=== PATIENT | male | born 1980 | race Caucasian/White ===

== ENCOUNTER 2023-05-01 11:34 | Emergency (ER) | payer OTHER ==
[~2023-05-01] VITALS: Ht 180.3 cm; Wt 100.7 kg
[2023-05-01 12:10] VITALS: BP 138/91; PULSE 102; RESP 16; TEMP 99; O2SAT 98
== END 2023-05-01 16:13 | disposition left against medical advice (07) ==
LOC: ER 11:37
DX: H93.8X3 Other specified disorders of ear, bilateral (principal)
CPT/HCPCS: 99281

== ENCOUNTER 2025-05-06 02:53 | Emergency (ER) | payer MEDICAID, OTHER ==
[~2025-05-06] VITALS: Ht 180.3 cm; Wt 102.0 kg
--- NOTE | 2025-05-06 03:38 | Physician Documentation ---
History of Present Illness Chief Complaint: Abdominal Pain Stated Complaint: ABD PAIN Time Seen by MD: 03:32 Primary Medical Doctor: NONE Mode of Arrival: POV HPI This is a 44-year-old gentleman with a known history of gallstones, comes in for evaluation of right upper quadrant abdominal pain accompanied by nausea without vomiting that started at 5:00 p.m. without any obvious trigger, trauma provocation. The particular palliating or aggravating factors. He does not want to eat. The pain is moderate to severe in its intensity, waxing and waning. Did not attempt to treat it. Similar to prior gallstone biliary colic. Denies any other symptoms. Denies any concerns for tobacco, alcohol or illicit substances use. Medication Reconciliation Allergies: Coded Allergies: No Known Allergies (Unverified , 05/06/25) Review of Systems ROS 10 point review of systems was performed and unless noted above in HPI is negative for acute process/complaint. Physical Exam Vital Signs: Temperature: 98.0, Heart Rate: 80, Respiratory Rate: 20, BP: 134/74, Pulse Oximetry: 98, Weight: 102.000 Oxygen Flow Rate: 0 Physical Exam GENERAL: Awake, alert, oriented, GCS 15, no apparent distress, non-toxic appearing, answers questions, follows commands appropriately. Examined in bed 18. HEENT: Atraumatic, normocephalic, pupils equal, extraocular muscles intact, sclerae anicteric, mucus membranes moist, oropharynx is clear, no stridor. NECK: supple, full active range of motion, trachea midline, no thyromegaly, no lymphadenopathy, no JVD. CARDIOVASCULAR: regular rate/rhythm, no murmurs/gallops/rubs, Pulses are 2+ in all extremities and symmetric. Capillary refill less than 2 seconds. PULMONARY: Nonlabored, good air movement ,no respiratory distress, speaking in full sentences, clear to auscultation bilaterally, no wheezing, no ronchi, no rales, no accessory muscle use. GASTROINTESTINAL: Soft, right upper quadrant abdominal tenderness to palpation reproducing chief complaint, positive Boyle's, non-distended, normal active bowel sounds, no organomegaly, no pulsatile masses, no CVA tenderness. NEUROLOGIC: Lucid with normal mental status. Normal facial symmetry. Moves all extremities symmetrically and with purpose. No truncal ataxia. Speech is fluid without evidence of dysarthria or aphasia, no focal deficits appreciated. MUSCULOSKELETAL: There is full range of motion of all extremities. There is no joint pain or joint swelling or joint erythema. There is no muscle pain or tenderness or swelling. EXTREMITIES: warm, well-perfused, no cyanosis, no clubbing, no edema, no acute deformities. Skin: warm, dry, no rashes or lesions, no jaundice, no petechiae orpurpura. No ecchymosis. PSYCHIATRIC: Normal affect, normal insight, normal concentration. Focused exam: [] Progress Results/Orders Results/Orders Vital Signs 05/06/25 03:07 Temp 98.0 Pulse 80 Resp 20 B/P (MAP) 134/74 Pulse Ox 98 O2 Flow Rate 0 Medical Decision Making Findings Facility Status: ED Holds, [facility] process The plan was discussed with the patient, who demonstrates clear understanding of the plan and is in agreement with the plan unless otherwise noted in the chart. All questions have been answered, all concerns were addressed unless otherwise documented. I was available throughout their ED stay for frequent reassessment and questions. Differential Diagnoses (considered and possible or likely): [Differential diagnosis considered includes acute appendicitis, acute cholecystitis, pancreatitis, gastritis, PUD, diverticulitis, mesenteric ischemia, abdominal aortic aneurysm, bowel obstruction, enteritis, colitis, fecal impaction, volvulus, IBS, inflammatory bowel disease, specific food intolerance, peritonitis, perforated viscous, malignancy, UTI, abscess, and abdominal pain NOS. History, physical exam, and workup exclude many of the more serious causes listed above. ] ??Differential Diagnoses (considered and unlikely, not requiring evaluation currently): [See above] MDM Data Please see [facility] for the following: Independent Historians and external Records Review. Historian: [Patient] Independent Historians: ?[Record review] Medication Management: [Reviewed medication list] Social History and determinants: [Reviewed] Please see the body of the note for the following: Any independent interpretations of ECG, imaging studies. All vitals signs/haemodynamics, ordered tests were independently reviewed and interpreted by myself. Nursing triage complaint and vitals reviewed, additional nursing notes were reviewed as available and I agree unless otherwise noted or documented in contradiction in the chart Vital Signs: Independently reviewed Labs: Independently interpreted Imaging: Independently interpreted Old Medical Records: Independently reviewed, see [facility] for relevant summary and information Pulse Oximetry: [99%] interpreted as [normal on room air] by me Additionally notably showing: [] Tests considered but not ordered include: [] Social Determinants of Health Impact: Patient was evaluated in [facility], or [facility] [place] to healthcare due to below par ratio of patient to medical providers. [] Comorbid Conditions Impacting Present Evaluation and Care/Treatment: [] Management Discussions with other Healthcare Providers: [] Treatment and Disposition Medication Management (Given or considered): [Antiemetics, pain management]. See EMR for details Consideration for Hospitalization/Escalation/Deescalation of Care: Admission for observation has been considered, [however the patient is able to tolerate p.o., their symptoms are controlled, they are able to rely on oral medications, and their chief complaint/diagnosis can be managed on outpatient basis.] ?ED Course:?[] ?Shared decision making:?[] Code status:?FULL Please see the full Electronic Medical Record for full details of nursing documentation, medications list, other records of complete past medical history and conditions, vital signs, laboratory studies, and any radiologic study interpretations by radiologists. Portions of this note were completed using [email or web address] dictation software and as a result there may exist minor errors in spelling. I have reviewed elements of past family and social history and agree as included in note. Addendum I received sign-out on this patient at shift change. Briefly: The patient has history of gallstones, presented with right upper quadrant pain. Pending labs, ultrasound, CT scan. CT abdomen and pelvis: I personally interpreted the CT scan, and this shows no bowel obstruction or obvious bowel inflammation Right upper quadrant ultrasound: I personally reviewed the ultrasound, which shows multiple stones in the gallbladder, but normal gallbladder wall without thickening 8:15 a.m.: Re-evaluation: The patient is resting comfortably in bed. Denies any significant pain at this time. Repeat abdominal exam is benign. I explained the results of his testing and he would like to go home. Medical decision-making: Overall, this appears consistent with biliary colic which has resolved. The patient is given information and return precautions as well as information to follow up with a surgeon for further evaluation. Disposition: Discharged home Warren Hdz MD Departure Time of Disposition: 08:18 Disposition: 01 HOME / SELF CARE / HOMELESS Impression: Primary Impression: Right upper quadrant abdominal pain Additional Impressions: History of gallstones Biliary colic Condition: Improved Discharge Instructions: Cholelithiasis Referrals: NO PRIMARY CARE PROVIDER (PCP) BAUDILIO MOSHER MD Education Educated: Patient Educated regarding: diagnosis, treatment, need for follow up Signature Scribe Signature: No scribe Attestation: Date: May 06, 2025 Time: 03:37 This note accurately reflects clinical decisions, work performed by myself, DO DAFNE Burk NICHOLAS M DO May 06, 2025 03:37 WARREN HDZ MD May 06, 2025 08:18
[2025-05-06] MEDS: ondansetron/PF 4mg/2ml inj IV ONE (04:57)
[2025-05-06] MEDS: morphine 4 MG/ML inj SYRINge IV ONE (04:58)
[2025-05-06 05:16] LABS: MEAN PLATELET VOLUME 8.2 FL (7.4-10.4); RED CELL DISTRIBUTION WIDTH 14.5 % (11.5-14.5)
[2025-05-06 05:21] VITALS: TEMP 98
[2025-05-06 05:35] LABS: CREATININE 1.00 MG/DL (0.60-1.10); TOTAL CARBON DIOXIDE 22.9 MMOL/L (24-32); eCRCL 98 ML/MIN; eGFR 80 ML/MIN
[2025-05-06] MEDS ORDERED: iohexol 300mg/ml 100ml inj. ONE (07:03)
--- NOTE | 2025-05-06 07:59 | RADIOLOGY REPORT ---
INDICATION: ruq pain, hx of gallstones TECHNIQUE: Multiple real-time sonographic images were obtained of the right upper quadrant. COMPARISON: None FINDINGS: The liver demonstrates increased echotexture without focal mass lesions. The liver measures 16 cm. There is no intrahepatic or extrahepatic ductal dilatation. The common duct measures 0.3 cm. Cholelithiasis. The gallbladder wall measures 0.2 cm and is within normal limits. The right kidney measures 11.5 cm. The right kidney is normal in contour, size, and shape. The echogenicity is normal. There is no hydronephrosis. The pancreas is not well visualized due to overlying bowel gas. IMPRESSION: Cholelithiasis. Hepatic steatosis.
--- NOTE | 2025-05-06 08:05 | RADIOLOGY REPORT ---
CLINICAL INFORMATION: Right-sided abdominal pain. TECHNIQUE: Axial CT images of the abdomen and pelvis were obtained after the uneventful administration of 100 mL Omnipaque 300 IV contrast. Coronal and sagittal reformatted images were obtained, reviewed, and stored. All CT scans at this medical facility are performed using dose modulation techniques as appropriate to a performed exam including the following: Automated exposure control was utilized; adjustment of the MA and/or KV according to patient size; and use of iterative reconstruction technique. CTDIvol = 29.33 mGy DLP = 1617.32 mGy-cm COMPARISON: None FINDINGS: Lung bases: Dependent atelectasis. Liver: Hepatic steatosis. Biliary: No calcified gallstones or biliary ductal dilatation. Spleen: Unremarkable. Pancreas: Unremarkable. No inflammatory changes, ductal dilatation, or mass identified. Adrenal glands: Unremarkable. No mass. Kidneys: No hydronephrosis or mass. Aorta/Vascular: No aneurysm or significant calcification. Retroperitoneum: No mass or lymphadenopathy. Bowel/mesentery: Nonspecific nondilated fluid-filled small bowel loops with areas of mild small bowel wall thickening. No small bowel obstruction. Appendix is visualized and appears unremarkable. Scattered small colonic diverticula without adjacent inflammatory changes to suggest diverticulitis. Pelvic organs: Grossly unremarkable. Bladder: Unremarkable. No mass. Abdominal wall: No mass or hernia. Bones: No acute fracture or focal intraosseous lesion. IMPRESSION: 1. Nonspecific nondilated fluid-filled small bowel loops. Findings may be seen with ileus or enteritis in the appropriate clinical setting. No small bowel obstruction. 2. Scattered colonic diverticula without adjacent inflammatory changes to suggest diverticulitis. 3. Hepatic steatosis. 4. Additional findings as described above.
[2025-05-06 08:39] VITALS: BP 115/81; PULSE 69; RESP 15; O2SAT 96
== END 2025-05-06 08:42 | disposition home or self-care (01) ==
LOC: ER 02:54
DX: K80.70 Calculus of gallbladder and bile duct without cholecystitis without obstruction (principal)
CPT/HCPCS: 36415; 74177; 76700; 80053; 83690; 83735; 84484; 85025; 96374; 96375; 99285; J2270; J2405; Q9967

== ENCOUNTER 2025-08-14 02:05 | Inpatient (IN) | payer MEDICAID ==
[2025-08-14] VITALS (23 sets, daily range): BP systolic 105–170; BP diastolic 63–110; PULSE 60–104; RESP 2–18; TEMP 97.7–98.2; O2SAT 49–97
[~2025-08-14] VITALS: Ht 182.9 cm; Wt 103.2 kg
[2025-08-14 02:37] LABS: MEAN PLATELET VOLUME 8.5 FL (7.4-10.4); RED CELL DISTRIBUTION WIDTH 13.8 % (11.5-14.5)
[2025-08-14 02:42] LABS: CREATININE 1.16 MG/DL (0.60-1.10); TOTAL CARBON DIOXIDE 26.4 MMOL/L (24-32); eCRCL 87 ML/MIN; eGFR 68 ML/MIN
[2025-08-14] MEDS: morphine 4 MG/ML inj SYRINge IV ONE (03:35)
--- NOTE | 2025-08-14 03:38 | Physician Documentation ---
History of Present Illness ~ Chief Complaint: Abdominal Pain Stated Complaint: ABD PAIN A ALS Time Seen by MD: 03:31 Primary Medical Doctor: NONE HPI Patient presents to the emergency room with acute onset right upper quadrant abdominal pain that has started at 9:30 p.m. patient has history of gallstones. He states he had to microwave burritos for dinner. He states he has been working over the past two months since he was seen for similar symptoms with his primary care for referral to surgeon however that has not heard from any referrals despite him calling in checking. Medication Reconciliation Allergies: Coded Allergies: No Known Allergies (Unverified , 05/06/25) Scheduled Quetiapine Fumarate (Quetiapine Fumarate), 1 TAB PO HS, (Reported) Review of Systems ROS All review of systems negative except as per HPI Physical Exam Vital Signs: Temperature: 98.6, Source: Oral, Heart Rate: 61, Respiratory Rate: 12, BP: 128/83, Pulse Oximetry: 95, Weight: 103.180 Oxygen Flow Rate: 0 Physical Exam General: Patient is awake, alert, oriented x4 in no acute distress Head: Normocephalic and atraumatic. Eyes: Conjunctival normal. EOMI. PERRL. ENT: Mucous membranes moist. Neck: Supple, trachea is midline. Chest: Clear to auscultation bilaterally without rales, rhonchi, or wheezes. There is no accessory muscle use or retractions. Cardiac: RRR without murmurs, gallops, or rubs. Abd: Soft, nondistended, right upper quadrant tenderness to palpation Progress Progress Note 0919: The hospitalist has been paged at this time. 0929: The hospitalist, Dr. Bailon called and was informed on the patient at this time, kindly agreeing to their admission. Results/Orders Results/Orders Orders - JORGE L LEZAMA MD Saline Lock (08/14/25 02:07) Straight Cath For Urine Sample (08/14/25 02:07) Ultrasound Of Abdomen (08/14/25 05:33) Completed Orders - JORGE L LEZAMA MD Urinalysis, Cult If Indicated (08/14/25 02:07) Cbc/Diff (08/14/25 02:07) Lipase (08/14/25 02:07) CMP (08/14/25 02:07) Ketorolac Trometh 15mg/Ml Vial (Toradol (08/14/25 03:35) Ondansetron Inj. (Zofran 4mg/2ml Vial) (08/14/25 03:35) Morphine 4mg/Ml Inj. (Morphine Inj.) (08/14/25 03:35) Normal Saline 1000ml (0.9% Sodium Chlori (08/14/25 03:35) Ethanol (08/14/25 02:16) Fentanyl/Pf (Fentanyl 0.05 Mg/Ml Syringe (08/14/25 05:35) Acetaminophen 1,000mg/100ml Iv (Ofirmev (08/14/25 05:35) Ultrasound Of Abdomen (08/14/25 05:33) Vital Signs 08/14/25 08/14/25 08/14/25 08/14/25 02:16 03:34 05:37 06:25 Temp 98.6 98.6 98.6 Pulse 74 61 63 Resp 16 12 B/P (MAP) 124/71 128/83 (98) 113/79 (90) Pulse Ox 97 95 93 O2 Flow Rate 0 0 0 08/14/25 08/14/25 07:44 08:35 Temp 98.6 Pulse 63 68 Resp 16 15 B/P (MAP) 112/63 (79) 125/80 (95) Pulse Ox 95 97 O2 Flow Rate 0 Laboratory Tests Test 08/14/25 02:16 08/14/25 05:30 White Blood Count 8.0 Red Blood Count 5.10 Hemoglobin 14.8 Hematocrit 43.7 Mean Corpuscular Volume 85.7 Mean Corpuscular Hemoglobin 28.9 Mean Corpuscular Hemoglobin Concent 33.8 Red Cell Distribution Width 13.8 Platelet Count 251 Mean Platelet Volume 8.5 Neutrophils (%) (Auto) 48.3 Lymphocytes (%) (Auto) 40.7 Monocytes (%) (Auto) 5.2 Eosinophils (%) (Auto) 5.1 Basophils (%) (Auto) 0.7 Neutrophils # (Auto) 3.8 Lymphocytes # (Auto) 3.2 Monocytes # (Auto) 0.4 Eosinophils # (Auto) 0.4 Basophils # (Auto) 0.1 CBC Comment Sodium Level 144 Potassium Level 3.6 Chloride Level 108 H Carbon Dioxide Level 26.4 Anion Gap 10 Blood Urea Nitrogen 12 Creatinine 1.16 H Estimated GFR/1.73 m2 68 BUN/Creatinine Ratio 10.3 Glucose Level 124 H Calcium Level 8.6 Total Bilirubin 0.3 Aspartate Amino Transf (AST/SGOT) 21 Alanine Aminotransferase (ALT/SGPT) 36 Alkaline Phosphatase 100 Total Protein 6.7 Albumin 3.4 Globulin 3.3 Albumin/Globulin Ratio 1.0 L Lipase 50 Chemistry Comments Ethyl Alcohol Level < 10 Urine Specimen Description Cln catch midstream Urine Color Yellow Urine Clarity Clear Urine pH 5.5 Urine Specific [place] >=1.030 Urine Protein Negative Urine Glucose (UA) Negative Urine Ketones Negative Urine Occult Blood Negative Urine Nitrite Negative Urine Bilirubin Negative Urine Urobilinogen 0.2 Urine Leukocyte Esterase Negative Urine Culture Indicated Not ind Volume Urine Centrifuged 10 ml Urine Comment EKG/XRAY/CT/US/VASC/MRI EKG : Additional Comment 0909: [facility] interpreted the EKG to show a normal sinus rhythm at a rate of 66 beats per minute, normal axis, nonspecific ST wave depression or elevation. Ultrasound : Impression CLINICAL INFORMATION: Abdominal pain. TECHNIQUE: Grayscale sonographic imaging of the right upper quadrant of the abdomen was performed, assisted by color Doppler techniques. COMPARISON: CT CT ABDOMEN PELVIS W/ IV CONTRAST on DOS: 05/06/25 FINDINGS: The gallbladder wall measures 2.8 mm in thickness, within normal limits. The gallbladder is filled with shadowing gallstones. Positive reported sonographic Boyle's sign. The common bile duct measures 3.7 mm in diameter, within normal limits. Increased echogenicity of the liver consistent with fatty infiltration. Liver measures up to 16.6 cm in craniocaudal dimension, at the upper limits of normal. The pancreas is obscured by bowel gas. The right kidney measures 8.9 cm. There is no hydronephrosis. Right renal cortical echogenicity and cortical thickness are within normal limits. IMPRESSION: 1. Cholelithiasis with positive reported sonographic boyle's sign. Acute cholecystitis not excluded. Gallbladder wall thickness is within the range of normal. Correlate with clinical findings. 2. Hepatic steatosis. 3. Additional findings as detailed above. Electronically Signed by:VICTOR MANUEL VALLES DO Date & Time: 08/14/25 7792 Medical Decision Making Additional information obtaine: old records Findings Patient returns to the emergency room with continued epigastric pain. Ultrasounds shows possible cholecystitis. We will admit for further definitive management Diff Dx GI Bleed:Consideration: Include: AE fistula, Angiodysplasia, Bleeding diathesis, Blood loss anemia, Carcinoma, Diverticulosis, Diverticulitis, Esophageal varicies, Esophagitis, Gastritis, Gastroenteritis, Inflammatory BD, Lisa-Carpio syndrome, Meckel's diverticulum, PUD, Other Diff Dx Pain:Considerations: Include: AAA, Angina/KS, Aortic dissection, Appendicitis, Bowel obstruction, Cholangitis, Cholecystitis, Cholelithasis, Constipation, Diverticular disease, Esophageal rupture, Esophagitis, Gastritis, Gastroenteritis, GI hemorrhage, Hepatitis, Hernia, Inflammatory BD, Ischemic bowel, Mass, Pancreatitis, Porphyria, PUD, Testicular torsion, Trauma, intraabdominal, Urinary obstruction, Urinary tract infection, Urolithiasis, Other Diff Dx N/V/D:Considerations: Include: Appendicitis, Bowel obstruction, Dehydration, DKA, Diarrhea - bacterial, Diarrhea - parasitic, Diarrhea - viral, Diverticulitis, Diverticulosis, Drug toxicity, Electrolyte imbalance, Food poisoning, Gastroenteritis, GE reflux, GI bleed, Hepatitis, Hernia, Hypovolemia, Hypotension, Inflammatory BD, Impaction, Malnutrition, Pancreatitis, PUD, Renal failure, Urinary obstruction, UTI, Urolithiasis, Other Diff Dx Rectal:Considerations: Include: Fissure, Fistula, Foreign body, Impaction, Perirectal abscess, Prostatitis, Rectal prolapse, Subcutaneous abscess, Thrombosed hemorrhoid, Ulcer, UTI, Other Departure Time of Disposition: 09:30 Disposition: 09 ADMITTED INPATIENT Admitted to Inpatient Unit: yes, to hospitalist Impression: Primary Impression: Cholecystitis Condition: Guarded Referrals: NO PRIMARY CARE PROVIDER (PCP) Signature Scribe Signature: Scribed for [facility],Keegan Sarkar MD by Ana Paula Brady . 08/14/25 09:18 (Departure and progress) Attestation: The note accurately reflects work and decisions made by me.Jorge L Lezama MD 08/14/25 21:29 JORGE L LEZAMA MD Aug 14, 2025 03:38 ANA PAULA ATKINSON Aug 14, 2025 09:19
[2025-08-14 03:58] LABS: ETHANOL < 10 MG/DL (<10)
[2025-08-14] MEDS: ondansetron/PF 4mg/2ml inj IV ONE (04:22)
[2025-08-14] MEDS: ketorolac trometh 15mg/ml vial 15 MG/ML ML IV ONE (04:22)
[2025-08-14] MEDS: normal saline 1000ml 1,000 ML IV ONE (05:31)
[2025-08-14] MEDS: acetaminophen 1,000mg/100ml IV 100 ML IV ONE ×2 (05:43→15:16)
[2025-08-14] MEDS: fentaNYL/PF 50MCG/1 ML 2ML syringe IV ONE (05:59)
[2025-08-14 06:03] LABS: LEUKOCYTE ESTERASE ,URINE NEGATIVE (Neg); NITRITES, URINE NEGATIVE (Neg); OCCULT BLOOD,URINE NEGATIVE (Neg)
[2025-08-14 06:05] LABS: UA COLLECTION TYPE CLN CATCH MIDSTREAM
--- NOTE | 2025-08-14 08:39 | RADIOLOGY REPORT ---
CLINICAL INFORMATION: Abdominal pain. TECHNIQUE: Grayscale sonographic imaging of the right upper quadrant of the abdomen was performed, assisted by color Doppler techniques. COMPARISON: CT CT ABDOMEN PELVIS W/ IV CONTRAST on DOS: 05/06/25 FINDINGS: The gallbladder wall measures 2.8 mm in thickness, within normal limits. The gallbladder is filled with shadowing gallstones. Positive reported sonographic Boyle's sign. The common bile duct measures 3.7 mm in diameter, within normal limits. Increased echogenicity of the liver consistent with fatty infiltration. Liver measures up to 16.6 cm in craniocaudal dimension, at the upper limits of normal. The pancreas is obscured by bowel gas. The right kidney measures 8.9 cm. There is no hydronephrosis. Right renal cortical echogenicity and cortical thickness are within normal limits. IMPRESSION: 1. Cholelithiasis with positive reported sonographic boyle's sign. Acute cholecystitis not excluded. Gallbladder wall thickness is within the range of normal. Correlate with clinical findings. 2. Hepatic steatosis. 3. Additional findings as detailed above.
[2025-08-14] MEDS ORDERED: magnesium hydroxide 30ml (MOM) UD suspension PO PRN (09:30)
[2025-08-14] MEDS ORDERED: potassium Cl 20 mEq SR tablet PO PRN ×2 (09:30)
[2025-08-14] MEDS ORDERED: HYDROmorphone/PF 0.2 MG/ML SYRINGE IV PRN ×3 (09:30→11:50)
[2025-08-14] MEDS ORDERED: magnesium sulf-water 2g/50mL 50 ML IV PRN (09:30)
[2025-08-14] MEDS ORDERED: magnesium sulf-water 4G/100mL 100 ML IV PRN (09:30)
[2025-08-14] MEDS ORDERED: magnesium Cl slow-release 64mg tablet PO PRN (09:30)
[2025-08-14] MEDS ORDERED: potassium Cl 40MEQ/1/2NS 520ml 520 ML IV PRN (09:30)
[2025-08-14] MEDS ORDERED: mag hydrox/Alum hydrox/simeth 30ml oral suspension PO PRN (09:30)
[2025-08-14] MEDS ORDERED: HYDROmorphone inj. 0.5 MG/0.5 ML DISP.SYRIN IV PRN (09:34)
--- NOTE | 2025-08-14 09:36 | ELECTROCARDIOGRAPH REPORT ---
[facility] Test Date: 2025-08-14 Test Time: 09:34:56 Pat Name: WONG ESCALANTE Department: [facility] Patient ID: [id number] Room: [place] [address] Gender: M [employer]: : 1980 Requested By: JUDY MARTE Order Number: [id number] Reading MD: Dr. David Hayes Measurements Intervals [place] Rate: 66 P: 67 IA: 207 QRS: 79 QRSD: 106 T: 3 QT: 401 QTc: 421 Interpretive Statements Sinus rhythm Borderline prolonged IA interval ST elev, probable normal early repol pattern Electronically Signed On 08-15-2025 21:13:[address] David Hayes Please click the below link to view image of tracing.
[2025-08-14] MEDS: CefTRIAXone 2gm/D5W 50ml BAG 50 ML IV ONE (10:04)
[2025-08-14] MEDS: normal saline 1000ml 1,000 ML IV SCH (10:15)
--- NOTE | 2025-08-14 10:42 | HISTORY AND PHYSICAL ---
History & Physical Providers to CC ~ History of Present Illness Reason for Admit\Complaint: Acute cholecystitis\biliary colic History of Present Illness This is a 44 year old male who has a 10 year history of intermittent episodes of right upper quadrant abdominal pain related to gallstones. Last evening he had he did up to frozen breathe dose in the microwave and after eating he developed significant right upper quadrant abdominal pain that was persistent to the point that he came to the ED. The patient has been wanting his gallbladder out for several years however to no avail. Dr. Guzman spoke with Dr. Ron surgeon who is taking the patient to the OR. The patient is NPO Allergies: Coded Allergies: No Known Allergies (Unverified , 05/06/25) Past Medical History Past Medical History Gallstones with biliary colic times 10 years Past Surgical History Surgical History Comment No prior surgeries Family History Family History: Patient reports no known family medical history. Past Social History Social History Comment Smokes a pack of cigarettes a day, rare alcohol intake, denies any illicit drug use. Full code status. ROS ROS Except for positives in the HPI the rest of the 14 point review systems is negative. Exam Vitals: Vital Signs Date Time Temp Pulse Resp B/P (MAP) Pulse Ox O2 Delivery O2 Flow Rate FiO2 08/14/25 08:35 98.6 68 15 125/80 (95) 97 0 General: Gen. No acute distress alert and oriented 4 Lungs clear to ascultation bilaterally, no wheezes rales or rhonchi appreciated Heart normal sinus rhythm no murmurs rubs or clicks noted Abdomen soft nontender bowel sounds are normoactive Lower extremities no clubbing cyanosis, nor edema appreciated bilaterally Diagnostic Data Last Recorded Lab Results: 08/14/25 0216 08/14/25 0216 Counseling Services Smoking & Tobacco Cessation: > 10 Minutes Advance Care Planning Advanced Care plannin - 30 Minutes Problems: (1) Cholecystitis Status: Acute Additional Plan # acute cholecystitis # 10 year history of biliary colic secondary to gallstones The patient is NPO Received IV Rocephin in the ED Dr Ron surgeon is taking the patient to the OR this afternoon. IV Dilaudid for pain management # mildly reduced kidney function KUMAR versus CKD Daily metabolic panels are ordered # Tobacco use disorder-I spent 12 minutes discussing smoking cessation with the patient including the risk of continuing smoke: Lung cancer, stroke, heart attack, poor wound healing, Causes erectile dysfunction in men. The expense of smoking cigarettes and how cigarettes have been scientifically engineered to be as addictive as humanly possible. The patient has accepted a 21 mg nicotine patch. # DVT prophylaxis SCDs I spent a total of 16 minutes on reviewing various resuscitative measures/ ACP with the patient at the time of admission. The patient has decided on full code status Date of Service: Aug 14, 2025 Billing Provider: LIAT TORRES DO Common Visit Codes: 38004-DUASOKB INP/OBS CARE (HIGH) Secondary Visit Codes: 72862-AVWPD CHNG SMOKING >10MIN, [id number] CARE PLAN 30 MINUTES LAIT TORRES DO Aug 14, 2025 10:42
[2025-08-14] MEDS: nicotine 21mg patch - 24 hr TD ONE ×2 (10:48→17:49)
[2025-08-14] MEDS ORDERED: QUET100T34 PO (11:19)
[2025-08-14] MEDS ORDERED: ondansetron/PF 4mg/2ml inj IV PRN ×2 (11:50→14:50)
[2025-08-14] MEDS: ringers solution, lacted 1,000 ML IV SCH (11:50)
[2025-08-14] MEDS ORDERED: hydrALAZINE 20mg/ml inj. IV PRN (11:50)
[2025-08-14] MEDS ORDERED: dexamethasone sod phosphate 4mg/ml inj. ONE (13:15)
--- NOTE | 2025-08-14 13:22 | PROGRESS NOTE ---
Progress Note ID Providers to CC ~ Progress Note Progress Note: pt seen and examined-needs tyler dupont-discussed procedure including risks/benefits/alternatives BAUDILIO MOSHER MD Aug 14, 2025 13:22
[2025-08-14] MEDS ORDERED: ondansetron/PF 4mg/2ml inj ONE (13:42)
[2025-08-14] MEDS ORDERED: propofol inj 20 ML IV ONE (13:42)
[2025-08-14] MEDS ORDERED: glycopyrrolate 0.2mg/ml inj ONE (13:42)
[2025-08-14] MEDS ORDERED: rocuronium 10mg/ml inj IV ONE (13:42)
[2025-08-14] MEDS ORDERED: LIDOcaine 2% (20mg/ml) 5ml vial ONE (13:42)
[2025-08-14] MEDS ORDERED: acetaminophen 1,000mg/100ml IV 100 ML IV ONE (13:43)
[2025-08-14] MEDS ORDERED: fentaNYL/PF 50MCG/1 ML 2ML syringe ONE (13:43)
[2025-08-14] MEDS: BUPIVAcaine/PF 2.5 mg/ml (0.25%) 30ml vial IJ ONE (13:55)
--- NOTE | 2025-08-14 14:45 | OPERATIVE REPORT ---
Operative Report Providers to CC ~ Date of Procedure: Aug 14, 2025 Pre-Operative Diagnosis: cholelithiasis Post-Operative Diagnosis SAME as PRE-Op Procedure Performed tyler dupont Surgeon: monty Drill Bit Sharpener none Anesthesiologist: Won Jacobsen Type of Anesthesia: General Findings: distended gb Estimated Blood Loss: min Specimen Removed: BAUDILIO Moreno MD Aug 14, 2025 14:45
[2025-08-14] MEDS: fentaNYL/PF 50MCG/1 ML 2ML syringe IV PRN ×2 (14:49→14:52)
[2025-08-14] MEDS ORDERED: PCA WASTE DOCUMENTATION 1 MG ML MC SCH (14:50)
[2025-08-14] MEDS: labetalol 20mg/4ml (5mg/ml) syringe IV PRN (15:01)
[2025-08-14] MEDS: ketorolac trometh 30MG/ML vial 30 MG/ML VIAL IV ONE (15:25)
[2025-08-14] MEDS: HYDROmorphone inj. 0.5 MG/0.5 ML DISP.SYRIN IV PRN ×3 (15:41→22:19)
[2025-08-14] MEDS: ondansetron/PF 4mg/2ml inj IV PRN (17:43)
[2025-08-14] MEDS: K and/or MAG REPLACEMENT MC SCH (20:00)
[2025-08-14] MEDS: HYDROcodone/acetaminophen 10/325mg tab PO PRN (20:08)
[2025-08-14] MEDS: docusate sod 100mg capsule PO SCH (20:08)
--- NOTE | 2025-08-15 01:31 | OPERATIVE REPORT ---
DATE OF SURGERY: 08/14/2025 DICTATING PHYSICIAN: Chapo Ron MD PREOPERATIVE DIAGNOSIS: Cholelithiasis. POSTOPERATIVE DIAGNOSIS: Cholelithiasis. PROCEDURE PERFORMED: Robotic cholecystectomy. SURGEON: Chapo Ron MD. ROD AND TUBE STRAIGHTENER: None. ANESTHESIA: General/Dr. Jacobsen. DRAINS: None. INDICATIONS FOR OPERATION: A 44-year-old male with history of abdominal discomfort and is taken to surgery for robotic cholecystectomy. INTRAOPERATIVE FINDINGS: Distended gallbladder with stones. DESCRIPTION OF PROCEDURE: The patient was placed supine on the operating table. After induction of general anesthesia and placement of endotracheal tube, the abdomen was prepped and draped. A subumbilical incision was then made and Maddi port placed using open technique and pneumoperitoneum was begun by insufflation of CO2. Additional ports were placed in the left lower quadrant and two in the right. Robot was then brought to the field. Camera port docked. Camera placed, camera targeted. Additional ports were then docked and instruments placed. Abdomen was then explored. Gallbladder fundus was grasped and retracted cephalad. Cystic duct identified, isolated, ligated, clipped and divided as was the cystic artery. The gallbladder was mobilized off the gallbladder fossa. When hemostasis was noted to be adequate, robotic instruments were removed. Gallbladder was placed in a lap bag using the laparoscope. Abdomen was then copiously irrigated with large amount of antibiotic-containing solution. Ports were then removed as well as gallbladder. Under laparoscopic vision with no evidence of active bleeding, final port and camera withdrawn. Pneumoperitoneum was then evacuated. Wounds were closed in layers. Skin was closed with clips. Dressing was applied. The patient was transferred to recovery room in stable condition. Chapo Ron MD TID: [id number] RECEIPT: [id number] /
[2025-08-15 02:00] VITALS: BP 136/72; PULSE 91; RESP 18; TEMP 99.1; O2SAT 93
[2025-08-15 03:50] VITALS: O2SAT 96
[2025-08-15 04:56] LABS: MEAN PLATELET VOLUME 8.2 FL (7.4-10.4); RED CELL DISTRIBUTION WIDTH 13.9 % (11.5-14.5)
[2025-08-15 05:14] LABS: CREATININE 1.35 MG/DL (0.60-1.10); TOTAL CARBON DIOXIDE 25.6 MMOL/L (24-32); eCRCL 75 ML/MIN; eGFR 57 ML/MIN
[2025-08-15 07:24] VITALS: BP 129/66; PULSE 87; RESP 13; TEMP 99.4; O2SAT 96
[2025-08-15 07:36] VITALS: RESP 16; O2SAT 96
[2025-08-15] MEDS: nicotine 21mg patch - 24 hr TD SCH (07:40)
[2025-08-15] MEDS ORDERED: nicotine 21mg patch - 24 hr TD ONE (08:00)
[2025-08-15 10:00] VITALS: BP 144/84; PULSE 87; RESP 16; TEMP 99.3; O2SAT 95
[2025-08-15] MEDS ORDERED: HYDR-3972 PO (11:34)
[2025-08-15] MEDS ORDERED: SACC250C PO (11:34)
[2025-08-15] MEDS ORDERED: CEFD300C3 PO (11:34)
[2025-08-15] MEDS ORDERED: NICO-687 TD (11:45)
--- NOTE | 2025-08-15 19:27 | DISCHARGE SUMMARY ---
Discharge Summary Providers to CC ~ Discharge Summary Admission Diagnosis: cholelithiasis Hospital Course DATE OF ADMISSION: 08/14/2025 DATE OF DISCHARGE: 08/15/2025 Discharge Diagnosis\Comment: Cholecystitis Likely CKD Tobacco use disorder Operations\Procedures: Laparoscopic cholecystectomy Consultants: Dr Chapo Ron surgeon Complications: None Condition on DC: Stable New Medications: Cefdinir (Cefdinir) 300 Mg Capsule 1 CAP PO Q12H for 5 Days, #10 CAP 0 Refills Saccharomyces Boulardii (Florastor) 250 Mg Capsule 1 CAP PO Q12H for loose stool for 10 Days, #20 CAP 0 Refills Hydrocodone Bit/Acetaminophen (Hydrocodon-Acetaminophn 10-325 tablet) 10mg- 325mg Tablet 1 TAB PO Q4H PRN for SEVERE PAIN 7-10, #15 TAB Nicotine 21 MG Patch* (Habitrol 21 MG Patch*) 1 Each Patch.td24 1 PATCH TD DAILY, #28 PATCH Do not smoke while on a nicotine patch this could markedly raise your blood pressure and you could have a stroke. Continued Medications: Quetiapine Fumarate (Quetiapine Fumarate) 100 Mg Tablet 1 TAB PO HS Discharge Summary: I admitted the patient with the following HPI:This is a 44 year old male who has a 10 year history of intermittent episodes of right upper quadrant abdominal pain related to gallstones. Last evening he had he did up to frozen breathe dose in the microwave and after eating he developed significant right upper yuliet drant abdominal pain that was persistent to the point that he came to the ED. The patient has been wanting his gallbladder out for several years however to no avail. Dr. Guzman spoke with Dr. Ron surgeon who is taking the patient to the OR. The patient is NPO The patient went for laparoscopic cholecystectomy the afternoon of the admission- and the patient has a mildly elevated temperature on the morning of the of 99.4 and the patient [place] [id number] with a left shift 82.8% neutrophils I elected to discharge the patient with a prescription for cefdinir for additional five days as well as Florastor probiotic the patient requested pain medication for discharge the patient is discharged with a total of 15 tablets of [place] 10/325 one every 4 hours for severe pain. I did discuss smoking cessation on the time of admission and discharge the patient with the 21 mg nicotine patch and recommended not to smoke while on a nicotine patch as this could markedly elevated his blood pressure and he could have a stroke. Gen. No acute distress alert and oriented 4 Lungs clear to ascultation bilaterally, no wheezes rales or rhonchi appreciated Heart normal sinus rhythm no murmurs rubs or clicks noted Abdomen soft mild generalized tenderness, there was no erythema around the Band- Aids of the laparoscopic sites bowel sounds are normoactive Lower extremities no clubbing cyanosis, nor edema appreciated bilaterally The patient felt ready to be discharged and was medically cleared to be discharged on 08/15/2025 the patient has stated that he felt better than at the time of admission The patient was seen and evaluated on day of discharge. Time spent on discharge 35 minutes *Problems/Diagnosis: (1) Cholecystitis Status: Acute Total Time Spent on D/C: > 30 Minutes Date of Service: Aug 15, 2025 Billing Provider: LIAT TORRES DO Common Visit Codes: 71595-TVJ/OBS DISCH DAY >30min LIAT TORRES DO Aug 15, 2025 19:27
--- NOTE | 2025-08-16 03:31 | CONSULTATION ---
DATE OF CONSULTATION: 08/14/2025 DICTATING PHYSICIAN: Chapo Ron MD REASON FOR CONSULTATION: Abdominal pain. HISTORY OF PRESENT ILLNESS: The patient is a 44-year-old male with history of cholelithiasis with complaints of abdominal discomfort. Imaging confirmed cholelithiasis. ____ upper abdominal discomfort associated ____ hematemesis, history of peptic ulcer disease. PAST MEDICAL HISTORY: Biliary colic. PAST SURGICAL HISTORY: Unremarkable. HOME MEDICATIONS: See chart. ALLERGIES: None. SOCIAL HISTORY: Ongoing tobacco use. REVIEW OF SYSTEMS: See H and P. PHYSICAL EXAMINATION: GENERAL: A well-nourished male, in no distress. VITAL SIGNS: Unremarkable. HEART: Regular rate and rhythm. LUNGS: Clear to auscultation. ABDOMEN: Minimal upper abdominal discomfort. EXTREMITIES: Unremarkable. NEUROLOGIC: Nonfocal. LABORATORY DATA: WBC of 8, hematocrit 43, platelet count 251. Chemistries are unremarkable. IMAGING STUDIES: Ultrasound reveals cholelithiasis. IMPRESSION: Symptomatic cholelithiasis. RECOMMENDATIONS: * Admit. * . * Robotic cholecystectomy. Chapo Ron MD TID: [id number] RECEIPT: [id number] KB/UDD
== END 2025-08-15 12:55 | disposition home or self-care (01) | DRG 263 ==
LOC: ER 02:05 → ED HOLD 09:32 → SUR 3N 16:45
PROVIDERS: ADMIT Family Medicine; ATTEND Family Medicine
PROC: 8E0W4CZ Robotic Assisted Procedure of Trunk Region, Percutaneous Endoscopic Approach (ICD-10-PCS; 2025-08-14)
PROC: 0FT44ZZ Resection of Gallbladder, Percutaneous Endoscopic Approach (ICD-10-PCS; principal; 2025-08-14 13:27)
DX: K80.00 Calculus of gallbladder with acute cholecystitis without obstruction (principal); F17.210 Nicotine dependence, cigarettes, uncomplicated; N18.9 Chronic kidney disease, unspecified; K82.8 Other specified diseases of gallbladder; Z87.11 Personal history of peptic ulcer disease
CPT/HCPCS: 36415; 76700; 80053; 80320; 81003; 83690; 83735; 85025; 87081; 93005; 96365; 96375; 99285; A4215; A4615; A4618; A6258; A7000; G0378; J0131; J0696; J1100; J1171; J1885; J2003; J2405; J2704; J2710; J3010; J3490; J7030; J7120